=== PATIENT | female | born 1955 | race Caucasian/White ===

== ENCOUNTER → 2023-11-22 08:44 | Outpatient (BNV) | payer MEDICARE, SELFPAY | PROVIDERS: PCP Internal Medicine; Referring Provider Internal Medicine Hematology & Oncology; Visit Provider Internal Medicine Medical Oncology | DX: D05.12 Intraductal carcinoma in situ of left breast (principal) | CPT/HCPCS: 99204; 99213 ==

== ENCOUNTER 2024-03-17 11:49 | Outpatient (AMB) | payer MEDICARE, SELFPAY ==
--- NOTE | 2024-03-17 12:00 | A.OFFVIS_ITS ---
Vital Signs 3 03/17/24 12:09 Height 5 ft 4.5 in Weight 246 lb BMI 41.6 Pulse 62 Intake Visit Reasons: DCIS left breast Intake Note: Patient is seen in office for DCIS of the breast. Pt c/o:concern about last mammogram on 08/16/23 and gets pain in the left breast 12 o'clock, denies any other issues, taking Letrozole and side effects weight gain and hair loss Op Note: 11/23/23 ([facility]) ref Dr Martinez Hyperbaric Technologist Required: No Associate Research Scientist: Associate Research Scientist Present Accompanied by: Self / Same As Patient Allergies latex Allergy (Verified 03/17/24 12:07) Rash HPI Comments Details: 68-year-old female patient for presenting for breast cancer follow-up. She is a former patient of Dr. Cortes and Dr. Milo Arias. A screening mammogram on 04/10/2022 revealed a focal asymmetry in the lower inner left breast. Subsequent diagnostic mammogram on 04/19/2022 showed a persistent focal asymmetry in the medial left breast confirmed on ultrasound to be a 1.1 x 0.7 x 0.7 cm tubular hypoechoic mass in the 9 o'clock position this was again a demonstrated on 10/19/2022 at which time a left breast needle core biopsy was performed on 10/26/2022. 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 A left breast lumpectomy was subsequently performed by Dr. Cortes on 11/21/2022. Pathology revealed a 0.7 cm grade 2 solid papillary carcinoma without invasion. Margins were negative. Atypical ductal hyperplasia was also present. Patient declined radiation therapy. She was subsequently started on letrozole 2.5 mg p.o. q.day. Her latest mammogram performed on 08/16/2023 revealed postoperative changes in the left breast but no other suspicious findings. Diagnostic mammogram is recommended in 1 year (due 08/16/2024). This was felt to be low suspicion for malignancy (BI-RADS 3). She reports some pain in the left breast in the upper outer quadrant but denies any palpable mass or new skin changes. [facility] Medical History Head ache Scoliosis Sciatica Family History Brother Brain cancer Mother Breast cancer Social History Household Members: None Patient Tobacco Use Status: Never used Tobacco service: No Current occupational status: employed Review of Systems Const All systems reviewed & are unremarkable except as noted in HPI and below Denies chills, Denies fever(s), Denies headache(s), Denies poor appetite and Denies weakness ENT Denies headache(s) Card Denies chest pain, Denies irregular heart rhythm, Denies palpitations and Denies dyspnea Resp Denies cough, Denies excessive phlegm production and Denies dyspnea GI Denies abdominal pain, Denies bloating, Denies change in bowel habits, Denies constipation, Denies heartburn, Denies diarrhea, Denies nausea and Denies vomiting Denies urinary frequency Musc Denies back pain, Denies muscle weakness and Denies numbness Skin/Breast Denies changing lesions and Denies unusual bruising Neuro Denies headache(s), Denies numbness, Denies paresthesias and Denies weakness Psych Denies anxiety and Denies depression Endo Denies palpitations Shane/Lymph Denies lymphadenopathy Physical Exam Const General: cooperative and no acute distress Nutritional Appearance: well nourished Orientation/consciousness: patient oriented x3 Limitations: no limitations HEENT Head: Yes normocephalic and Yes atraumatic Ears: hearing grossly normal bilaterally Chest Other: Left breast: No skin change, no nipple retraction, no nipple discharge, no palpable mass, no enlarged lymph nodes. Right breast: No skin change, no nipple retraction, no nipple discharge, no palpable mass, no enlarged lymph nodes Chest/axillae images: 2 1. Incision left breast upper inner quadrant Resp Effort & Inspection: normal respiratory effort, no audible wheezes, no cough and no respiratory distress Cardio Jugular venous distension: no JVD GI Inspection: Yes normal to inspection Skin Other: Warm, dry, no rash Neuro Other: Mobility Assessment: 1. 3 meter assessment time (seconds) 5 2. 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 She was diagnosed with a noninvasive papillary carcinoma of the left breast ER/VT positive, HER2 Chelsea negative. She underwent lumpectomy on 11/21/2022 [facility]. She was evaluated by radiation oncology and medical oncology. She declined radiation therapy and was subsequently started on letrozole 2.5 mg p.o. daily. She underwent a follow-up mammogram on 08/16/2023 which revealed postoperative changes in the left breast (BI-RADS 3). Diagnostic mammogram is recommended in 1 year. Examination today revealed no suspicious findings in either breast. There is a well-healed incision in the left breast with no evidence of recurrent disease. We will schedule her for her annual mammogram due on 08/16/2024. She will follow-up in 6 months for routine breast examination. Coding Level of Care Code New Pt Level 4 (85421) Complex EM visit Add On G2211 Diagnoses Ductal carcinoma in situ (DCIS) of left breast D05.12
[2024-03-17 12:09] VITALS: PULSE 62; BMI 41.6
== END 2024-03-17 12:41 | disposition home or self-care (01) ==
PROVIDERS: PCP Internal Medicine; Visit Provider Surgery
DX: D05.12 Intraductal carcinoma in situ of left breast (principal)
CPT/HCPCS: 99204; G2211

== ENCOUNTER → 2024-03-17 11:49 | Outpatient (BNVA) | payer MEDICARE, SELFPAY | PROVIDERS: PCP Internal Medicine; Visit Provider Surgery | DX: D05.12 Intraductal carcinoma in situ of left breast (principal); Z79.811 Long term (current) use of aromatase inhibitors; Z17.0 Estrogen receptor positive status [ER+]; Z17.21 Progesterone receptor positive status; Z17.32 Human epidermal growth factor receptor 2 negative status | CPT/HCPCS: 99202 ==

== ENCOUNTER 2024-08-10 09:01 | Outpatient (REF) | payer MEDICARE, SELFPAY ==
--- NOTE | ~2024-08-10 | MM_ITS ---
EXAMINATION: MM DIAGNOSTIC DIGITAL BREAST TOMOSYNTHESIS, BILATERAL CLINICAL INFORMATION: History of left breast cancer in 2022 status post lumpectomy. COMPARISON: Mammography: Comparison is made with relevant prior exams from outside institution. TECHNIQUE: Digital breast mammography with tomosynthesis is performed in both the craniocaudal and mediolateral oblique views along with computer-aided detection (CAD). FINDINGS: There are scattered areas of fibroglandular density (ACR BI-RADS breast composition Category b). Left post lumpectomy changes are stable. There are no significant masses, abnormal calcifications, or other abnormalities. Results are provided to the patient at time of visit by the technologist. MM/MM tomosynthesis diagnostic BI IMPRESSION: There are no significant changes from prior study. Patient has bilateral] Both breasts, and left breast tingly which comes and goes since February 2024. Recommend clinical evaluation and if there is a focal concern or if deemed clinically significant a diagnostic workup can be ordered and performed. ASSESSMENT: BI-RADS BI-RADS 2 - Benign Findings RECOMMENDATION: 1 year F/U This patient's information was entered into a reminder system with a target due date for their next mammogram. Electronically signed by: Alba Thibodeaux DO 08/10/2024 11:29 AM EDT
--- OUTSIDE RECORDS SUMMARY | 2024-08-10 09:13 | XMS_ITS | Clinical Summary ---
Author Organization [facility] Address [address] [place] [address] Care Team Providers Care Casing Fluid Tender Name Role Phone Alisa Wong MD Primary Care Provider [phone] Allergies Active Allergy Reactions Criticality Noted Date Comments Latex 12/21/2022 Medications Medication Sig Dispensed Refills Start Date End Date Status Misc Natural Products (YUMVS BEET ROOT-TART AG PO) Take 500 mg by mouth daily. 0 Active OMEGA-3 KRILL OIL PO Take by mouth daily. Dizue-eajlp-7-dha -epa-lipids (154-50-13-50 mg capsule, oral) 0 Active Magnesium 250 MG TABS Take 250 mg by mouth daily. 0 Active B Complex-C (B COMPLEX-VITAMIN C PO) Take by mouth. 0 Active Cholecalciferol (Vitamin D) 125 MCG (5000 UT) CAPS Take by mouth. 0 Active letrozole (FEMARA) 2.5 MG tablet Take 1 tablet (2.5 mg total) by mouth daily 90 tablet 3 08/20/2023 Active Active Problems Problem Noted Date Diagnosed Date Ductal carcinoma in situ (DCIS) of left breast 1 Social History Tobacco Use Types Packs/Day Years Used Date Smoking Tobacco: Never Assessed Sex and Gender Information Value Date Recorded Sex Assigned at Female 12/14/2022 7:37 AM EDT Gender Identity Not on file Sexual Orientation Not on file Job Start Date Occupation Industry Not on file Not on file Not on file Last Filed Vital Signs Vital Sign Reading Time Taken Comments Blood Pressure 176/78 08/20/2023 9:56 AM EDT patient went to wrong building - rushed here Pulse 79 08/20/2023 9:56 AM EDT Temperature 36.9 ??C (98.4 ??F) 08/20/2023 9 :56 AM EDT Respiratory Rate - - Oxygen Saturation 99% 08/20/2023 9:5 6 AM EDT Inhaled Oxygen Concentration - - Weight 111.7 kg (246 lb 3.2 oz) 08/20/2023 9:56 AM EDT Height 162.6 cm (5' 4 ) 08/20/2023 9:56 AM EDT Body Mass Index 42.26 08/20/2023 9:56 AM EDT Plan of Treatment Health Maintenance Due Date Last Done Comments Hepatitis C Screening 1955 COVID-19 Vaccine (#1) 1958 Pneumococcal Vaccine (1 of 2 - PCV) 11/10/1959 Depression Screening 1965 Preventative Health Evaluation 11/10/1971 DTap / Tdap / Td (1 - Tdap) 1972 Shingrix-Zoster Vaccine (1 of 2) 1972 Colon Cancer Screening (Colonoscopy) 1998 Breast Cancer Screening (Mammogram) 11/10/2003 RSV Adult > 60+ Yrs or Pregn ant (1 - Risk 60-74 years 1-dose series) 2013 Fall Risk Assessment 2018 Osteoporosis Screening (DEXA Scan) 2018 Influenza Vaccine (#1) 2023 Hepatitis B Vaccines Aged Out No long er eligible based on patient's age to complete this topic RSV Ped < 20 months Aged Out No longe r eligible based on patient's age to complete this topic Care Teams Casing Fluid Tender Relationship Specialty Start Date End Date Alisa Wong MD [address] [place] [address] PCP - General Internal Medicine 12/13/22
--- OUTSIDE RECORDS SUMMARY | 2024-08-10 09:14 | XMS_ITS | Patient Health Record ---
Author Organization [facility] Address [address] [place] [address] Care Team Providers Care Circuit Design Engineer Name Role Phone JESS SMITH Unavailable [phone] Allergies Allergen (clinical drug ingredient) Drug/Non Drug Allergy documented on EMR Reaction Allergy Type Onset Date Status Latex latex (uncoded) Unknown Allergy Acti ve Reason For Referral No Information Medications Medication SIG (Take, Route, Frequency, Duration) Notes Start Date End Date Status Vitamin D-3 125 MCG (5000 UT) as directed Orally Active Vitamin B12 100 MCG as directed Orally Active Fish Oil 1200 MG 1 capsule Orally Onc e a day Active Vitamin D 50 MCG (2000 UT) 1 tablet Orally Once a day Active [place] 600 MG as directed Orally Active Medrol 4 MG as directed Orally f or 6 days Active Krill Oil 1000 MG as directed Orally Active Tart Connor 1200 MG as directed Orally Active Zinc 10 MG 1 lozenge as needed Mouth/Throat every 4 hrs Active B-12 2500 MCG as directed Sublingual Active Social History Tobacco Use: Social History Observation Description Date Details (start date - stop date) Never Smoker NA - NA Tobacco Use/Smoking Question Answer Notes Are you a nonsmoker Section Notes: 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 finacial aid Problems Problem Type SNOMED Code ICD Code Onset Dates Problem Status W/U Status Risk Notes Problem Hyperlipidemia (87265946) Hyperlipidemia, unspecified (E78.5) Active confirmed Problem Lumbago with sciatica, right side (M54.41) Active confirmed Problem Vitamin D deficiency (61505929) Vitamin D deficiency (E55.9) Active confirmed Problem 113279292 Body mass index [BMI] 40.0-44.9, adult (Z68.41) Active confirmed Problem Grief (012466543) Grief (F43.21) Active confirm ed Plan Of Treatment Pending Test Test Name Order Date XR Hip 2+ Views RT 01/26/2020 LIPID PANEL, STANDARD 04/05/2022 LIPID PANEL, STANDARD 05/21/2022 COMPREHENSIVE METABOLIC PANEL 04/05/2022 CBC (INCLUDES DIFF/PLT) 04/05/2022 URINALYSIS, COMPLETE 04/05/2022 HEMOGLOBIN A1c 04/05/2022 TSH 04/05/2022 VITAMIN D,25-OH,TOTAL,IA 04/05/2022 Insurance Providers Payer Name Payer Address Payer Phone Subscriber Number Group Number Insured Name Patient Relationship to Insured Coverage Start Date Coverage End Date [employer] [facility] [address] [address] [place] [address] [id number] PANDA CALVO Self - patient is the insured Medical (General) History Medical History History ICD Code Obesity (BMI 30-39.9) E66.9 Surgical History Surgery Date(Month/Year) tonsillectomy
== END 2024-08-10 09:02 | disposition home or self-care (01) ==
LOC: HO.MAMMO 09:01
PROVIDERS: PCP Internal Medicine; Referring Provider Internal Medicine Medical Oncology; Visit Provider Surgery
DX: Z85.3 Personal history of malignant neoplasm of breast (principal)
CPT/HCPCS: 77062; 77066

== ENCOUNTER → 2024-08-10 09:30 | Outpatient (BNV) | payer MEDICARE, SELFPAY | PROVIDERS: PCP Internal Medicine; Referring Provider Internal Medicine Medical Oncology; Visit Provider Internal Medicine | DX: Z85.3 Personal history of malignant neoplasm of breast (principal) | CPT/HCPCS: 77066; G0279 ==

== ENCOUNTER 2024-08-28 08:42 | Outpatient (AMB) | payer MEDICARE, SELFPAY ==
--- OUTSIDE RECORDS SUMMARY | 2024-08-28 08:57 | XMS_ITS | Clinical Summary ---
Author Organization [facility] Address [address] [place] [id number] Care Team Providers Care Drying Room Attendant Name Role Phone Alisa Wong MD Primary Care Provider [phone] Allergies Active Allergy Reactions Criticality Noted Date Comments Latex 12/21/2022 Medications Medication Sig Dispensed Refills Start Date End Date Status Misc Natural Products (YUMVS BEET ROOT-TART AG PO) Take 500 mg by mouth daily. 0 Active OMEGA-3 KRILL OIL PO Take by mouth daily. Yzhwo-wmanz-5-dha -epa-lipids (491-17-86-50 mg capsule, oral) 0 Active Magnesium 250 [...] Osteoporosis Screening (DEXA Scan) 2018 Influenza Vaccine (Season Ended) 2024 Hepatitis B Vaccines Aged Out No long er eligible based on patient's age to complete this topic RSV Ped < 20 months Aged Out No longe r eligible based on patient's age to complete this topic Care Teams Drying Room Attendant Relationship Specialty Start Date End Date Alisa Wong MD [address] [place] [address] PCP - General Internal Medicine 12/13/22
--- NOTE | 2024-08-28 09:00 | MHC.OFFVIS ---
Vital Signs 08/28/24 09:12 Height 5 ft 4.5 in Weight 244 lb BMI 41.2 Blood Pressure Location Lt brachial Position Sitting Pulse 62 Intake Visit Reasons: s/p 08/10/24 Mammo Intake Note: Patient is seen in office for 6 month follow up visit, breast exam. Pt c/o: concern as mammogram was performed by someone who was in training. Hx of dense breast but did not feel much compression. mm: 08/10/24 Picture Enlarger Required: No Accompanied by: Self / Same As Patient Allergies latex Allergy (Verified 08/28/24 09:12) Rash Medication List - Last Reconciled 08/28/24 by Yunier Donohue MD letrozole 2.5 mg PO DAILY HPI Comments Details: 68-year-old female patient for presenting for breast cancer follow-up. She is a former patient of Dr. Cortes and Dr. Milo Arias. A screening mammogram on 04/10/2022 revealed a focal asymmetry in the lower inner left breast. Subsequent diagnostic mammogram on 04/19/2022 showed a persistent focal asymmetry in the medial left breast confirmed on ultrasound to be a 1.1 x 0.7 x 0.7 cm tubular hypoechoic mass in the 9 o'clock position this was again a demonstrated on 10/19/2022 at which time a left breast needle core biopsy was performed on 10/26/2022. Pathology revealed a solid papillary carcinoma in-situ, ER/IN positive, HER2 Chelsea negative. A left breast lumpectomy was subsequently performed by Dr. Cortes on 11/21/2022. Pathology revealed a 0.7 cm grade 2 solid papillary carcinoma without invasion. Margins were negative. Atypical ductal hyperplasia was also present. Patient declined radiation therapy. She was subsequently started on letrozole 2.5 mg p.o. q.day. her latest mammogram performed on 08/10/2024 revealed no mammographic evidence of malignancy (BI-RADS 2). [facility] Medical History Head ache Scoliosis Sciatica Family History Brother Brain cancer Mother Breast cancer Social History Household Members: None Patient Tobacco Use Status: Never used Tobacco service: No Current occupational status: employed Review of Systems Const All systems reviewed & are unremarkable except as noted in HPI and below Denies chills, Denies fever(s), Denies headache(s), Denies poor appetite and Denies weakness ENT Denies headache(s) Card Denies chest pain, Denies irregular heart rhythm, Denies palpitations and Denies dyspnea Resp Denies cough, Denies excessive phlegm production and Denies dyspnea GI Denies abdominal pain, Denies bloating, Denies change in bowel habits, Denies constipation, Denies heartburn, Denies diarrhea, Denies nausea and Denies vomiting Denies urinary frequency Musc Denies back pain, Denies muscle weakness and Denies numbness Skin/Breast Denies changing lesions and Denies unusual bruising Neuro Denies headache(s), Denies numbness, Denies paresthesias and Denies weakness Psych Denies anxiety and Denies depression Endo Denies palpitations Shane/Lymph Denies lymphadenopathy Physical Exam Const General: cooperative and no acute distress Nutritional Appearance: well nourished Orientation/consciousness: patient oriented x3 Limitations: no limitations HEENT Head: Yes normocephalic and Yes atraumatic Ears: hearing grossly normal bilaterally Chest Other: Left breast: No skin change, no nipple retraction, no nipple discharge, no palpable mass, no enlarged lymph nodes. Well-healed incision in the lower and upper inner quadrants as noted below. Right breast: No skin change, no nipple retraction, no nipple discharge, no palpable mass, no enlarged lymph nodes Chest/axillae images: 1. Incision left breast s/p lumpectomy Resp Effort & Inspection: normal respiratory effort, no audible wheezes, no cough and no respiratory distress Cardio Jugular venous distension: no JVD GI Inspection: Yes normal to inspection Skin Other: Warm, dry, no rash Neuro Other: Mobility Assessment: 1. 3 meter assessment time (seconds) 6 2. Gait observations: Normal balance and gait General: patient oriented x3 Extrem General: Yes no clubbing, cyanosis or edema Assessment & Plan Assessment & Plan (1) Ductal carcinoma in situ (DCIS) of left breast: Comment: Noninvasive papillary carcinoma left breast, ER/IN positive, HER2 Chelsea negative diagnosed at [facility], lumpectomy performed 11/21/2022 Code(s): D05.12 - Intraductal carcinoma in situ of left breast Category: Medical Plan 68-year-old female patient presenting for a breast cancer follow-up examination. She was diagnosed with a noninvasive papillary carcinoma of the left breast ER/IN positive, HER2 Chelsea negative. She underwent lumpectomy on 11/21/2022 [facility]. She was evaluated by radiation oncology and medical oncology. She declined radiation therapy and was subsequently started on letrozole 2.5 mg p.o. daily. Her most recent mammogram performed on 08/10/2024 revealed no mammographic evidence of malignancy (BI-RADS 2). Examination today revealed no suspicious findings in either breast. There is a well-healed incision in the left breast with no evidence of recurrent disease. Follow-up mammogram in 1 year is recommended. I recommended follow-up examination in 6 months. Coding Level of Care Code Est Pt Level 3 (55948) Complex EM visit Add On G2211 Diagnoses Ductal carcinoma in situ (DCIS) of left breast D05.12
[2024-08-28 09:12] VITALS: PULSE 62; BMI 41.2
== END 2024-08-28 09:37 | disposition home or self-care (01) ==
LOC: HO.HGS 08:42
PROVIDERS: PCP Internal Medicine; Visit Provider Surgery
DX: D05.12 Intraductal carcinoma in situ of left breast (principal)
CPT/HCPCS: 99213; G2211

== ENCOUNTER → 2024-08-28 08:42 | Outpatient (BNVA) | payer MEDICARE, SELFPAY | PROVIDERS: PCP Internal Medicine; Visit Provider Surgery | DX: D05.12 Intraductal carcinoma in situ of left breast (principal) | CPT/HCPCS: 99212 ==

== ENCOUNTER 2024-12-28 07:33 | Outpatient (REF) | payer MEDICARE, SELFPAY ==
--- NOTE | ~2024-12-28 | MM_ITS ---
EXAMINATION: DXA BONE DENSITY AXIAL HISTORY: osteopenia TECHNIQUE: AccuRev Dual energy absorptiometry (DEXA) of the lumbar spine, total left hip, and femoral neck was performed. COMPARISON: There are no prior studies for comparison. FINDINGS: The bone mineral density of the lumbar spine is 1.410 g/cm2, corresponding to a T-score of 1.9, and a Z-score of 2.4. This is indicative of normal bone mineral density. The bone mineral density of the left total hip is 1.118 g/cm2, corresponding to a T-score of 0.9, and a Z-score of 1.6. This is indicative of normal bone mineral density. The bone mineral density of the left femoral neck is 1.085 g/cm2, corresponding to a T-score of 0.3, and a Z-score of 1.3. This is indicative of normal bone mineral density. MM/XR DEXA axial skeleton IMPRESSION: Based on bone mineral density, and according to World Health Organization (WHO) criteria, the diagnosis is consistent with normal bone mineral density. Statistically, 68% of repeat scans fall within 1 SD (+/- 0.010 g/cm2 for AP spine L1-L4) and 1 SD (+/- 0.012 g/cm2 for femur total) FRAX is a trademark of the [employer]'s [place] [employer] Metabolic Bone [employer], a World Health Organization (WHO) Collaborating Center. Electronically signed by: Gregory Wilkins MD 12/28/2024 08:22 AM EDT
--- OUTSIDE RECORDS SUMMARY | 2024-12-28 07:37 | XMS_ITS | Clinical Summary ---
Author Organization [facility] Address [address] [place] [address] Care Team Providers Care Sas Developer Name Role Phone Alisa Wong MD Primary Care Provider [phone] Allergies Active Allergy Reactions Criticality Noted Date Comments Latex 12/21/2022 Medications Medication Sig Dispensed Refills Start Date End Date Status Misc Natural Products (YUMVS BEET ROOT-TART AG PO) Take 500 mg by mouth daily. 0 Active OMEGA-3 KRILL OIL PO Take by mouth daily. Efklo-kwsjv-5-dha -epa-lipids (470-68-60-50 mg capsule, oral) 0 Active Magnesium 250 [...] 79 08/20/2023 9:56 AM EDT Temperature 36.9 C (98.4 F) 08/20/2023 9:56 AM EDT Respiratory Rate - - Oxygen [...] (Colonoscopy) 1998 Breast Cancer Screening (Mammogram) 11/10/2003 Fall Risk Assessment 2018 Osteoporosis Screening (DEXA Scan) 2018 Influenza Vaccine (#1) 2024 RSV Adult > 60+ Yrs or Pregn ant (1 - 1-dose 75+ series) 2028 Hepatitis B Vaccines Aged Out No long er eligible based on patient's age to complete this topic RSV Ped < 20 months Aged Out No longe r eligible based on patient's age to complete this topic Care Teams Sas Developer Relationship Specialty Start Date End Date Alisa Wong MD [address] [place] [address] PCP - General Internal Medicine 12/13/22
--- OUTSIDE RECORDS SUMMARY | 2024-12-28 07:37 | XMS_ITS | Clinical Summary ---
Author Organization [facility] Address [address] [place] [phone] Phone Care Team Providers Care Sagger Preparer Name Role Phone Alisa Wong MD Primary Care Provider [phone] Allergies Active Allergy Reactions Criticality Noted Date Comments Latex 12/21/2022 Medications B3/B5/B6/B7/fol ic/B12/inosit/C (B COMPLEX-VITAMIN C ORAL) Take by mouth. Active cholecalciferol (VITAMIN D-3) 125 mcg (5,000 unit) capsule Take by mouth. Active letrozole (FEMARA) 2.5 mg tablet Take 1 tablet (2.5 mg total) by mouth daily 12/24/2022 Active magnesium 250 mg tablet Take 250 mg by mouth daily. Active UNABLE TO FIND Misc Natural Products (YUMVS BEET ROOT-TART AG PO) Route: Take 500 mg by mouth daily. - Oral Active krill/om-3/dha/ epa/phospho/ast (OMEGA-3 KRILL OIL ORAL) Take by mouth daily. Briqx-vqeit-3 -fxo-tsp-hkrj ds (684-68-31-50 mg capsule, oral) Active Active Problems Problem Noted Date Diagnosed Date Ductal carcinoma in situ (DCIS) of left breast 1 Social History Tobacco Use Types Packs/Day Years Used Date Smoking Tobacco: Never Assessed Comments Unknown Sex and Gender Information Value Date Recorded Sex Assigned at Female 12/11/2024 10:24 AM EDT Legal Sex Female 9:12 PM EST Gender Identity Not on file Sexual Orientation Not on file Obstetrics History Last Filed Vital Signs Vital Sign Reading Time Taken Comments Blood Pressure 176/78 08/20/2023 9:56 AM EDT Sit ting Pulse 79 08/20/2023 9:56 AM EDT Temperature - - Respiratory Rate - - Oxygen Saturation - - Inhaled Oxygen Concentration - - Weight 112 kg (246 lb 3.2 oz) 08/20/2023 9:56 AM EDT Height 162.6 cm (5' 4 ) 08/20/2023 9:56 AM EDT Body Mass Index 42.26 08/20/2023 9:56 AM EDT Plan of Treatment Health Maintenance Due Date Last Done Comments Colorectal Cancer Screening: Colonoscopy 1955 DTaP,Tdap,and Td Vaccines (1 - Tdap) 1972 Pneumococcal Vaccine: 50+ Ye ars (1 of 2 - PCV) 1972 Zoster Vaccines (1 of 2) 1972 RSV Immunization Adult Patie nts (1 - Risk 60-74 years 1-dose series) 2013 COVID-19 Vaccine (2 - Pfizer risk series) 06/14/2021 05/24/2021 Cholesterol Screening (Lipid Panel) 04/19/2023 Falls Risk Assessment 04/19/2023 Hepatitis C Screening 04/19/2023 Medicare Annual Wellness Visit 04/19/2023 Social Influencers of Health Screening 04/19/2023 Depression Screening 03/25/2024 Influenza Vaccine (#1) 2024 Breast Cancer Screening 12/09/2026 12/09/2024 Osteoporosis Screening (Bone Density Screening) 01/07/2033 01/07/2023 HIB Vaccines Aged Out No longer eligi ble based on patient's age to complete this topic HPV Vaccines Aged Out No longer eligi ble based on patient's age to complete this topic Hepatitis A Vaccines Aged Out No long er eligible based on patient's age to complete this topic Hepatitis B Vaccines Aged Out No long er eligible based on patient's age to complete this topic IPV Vaccines Aged Out No longer eligi ble based on patient's age to complete this topic MMR Vaccines Aged Out No longer eligi ble based on patient's age to complete this topic Meningococcal ACWY Vaccine Aged Out N o longer eligible based on patient's age to complete this topic Meningococcal B Vaccine Aged Out No l onger eligible based on patient's age to complete this topic RSV Immunization Patients Un andres 20 months Aged Out No longer eligible b ased on patient's age to complete this topic Varicella Vaccines Aged Out No longer eligible based on patient's age to complete this topic Procedures Procedure Name Priority Date/Time Associated Diagnosis Comments MG MAMMO DIGITAL SCREENING W AGUS BILAT Routine 12/09/2024 11:02 AM EDT ADAIR DEXA AXIAL SKELETON Routine 01/07/2023 8:22 AM EDT Asymptomatic menopausal state from Last 3 Months or Most Recently Relevant to Health Maintenance Results * MG Mammo Digital Screening w Agus bilat (12/09/2024 11:02 AM EDT) Anatomical Region Laterality Modality Breast Bilateral Mammography us Historical Provider MD VILLEGAS BI PROCEDURES Final R esult * ADAIR DEXA AXIAL SKELETON (01/07/2023 8:22 AM EDT) Anatomical Region Laterality Modality Mammography 01/04/2023 2:53 PM EDT Narrative 01/07/2023 8:22 AM EDT [facility] Diagnostic Imaging Department [address] [place] [address] Patient: PANDA FELDER /Age/Sex: 1955 - 67 - F Unit#: [id number] Location/Status: SPDIMAM/REG CLI Mnemonic[facility] Ordering Physician: MILO TEIXEIRA MD Adair Dexa Axial Skeleton - 01/04/23 - 0 Report Status:Signed HISTORY: The patient is a 67-year-old postmenopausal female with clinical concern for metabolic bone disease. FINDINGS: Dual energy x-ray absorptiometry of the lumbar spine and femurs is performed. The mean bone mineral density at L1-L4 is 1.395 gm/cm2 which is 118% of that of young normals and 124% of that of age matched controls. This yields a T-score of 1.8 and a Z-score of 2.3 and there is therefore no evidence of osteoporosis or osteopenia here. The mean bone mineral density of the femurs bilaterally is 1.171 gm/cm2 which is 116% of that of young normals and 125% of that of age matched controls. This yields a T-score of 1.3 and a Z-score of 1.9 and there is therefore no evidence of osteoporosis or osteopenia here. IMPRESSION: 1. There is no evidence of osteoporosis or osteopenia. 2. FRAX analysis yields a 10-year probability of major osteoporotic fracture of 5.1% and a 10-year probability of hip fracture of 0.1%. Code 90731 Dictating Physician: NITHIN WRIGHT MD Electronically Signed by: NITHIN WRIGHT MD Dic Date/Time: 01/07/23820 Sign date/Time: 01/07/23821 Procedure Note Nithin Wright MD - 04/30/2023 [facility] Diagnostic Imaging Department [address] [place] [address] Patient: GIRMA FELDERDWIGHT Wynne/Age/Sex: 1955 - 67 - F Unit#: [id number] Location/Status: SPDIMAM/REG CLI Mnemonic[facility] Ordering Physician: MILO TEIXEIRA MD Adair Dexa Axial Skeleton - 01/04/231509 Report Status:Signed HISTORY: The patient is a 67-year-old postmenopausal female withclinical concern for metabolic bone disease. FINDINGS: Dual energy x-ray absorptiometry of the lumbar spine and femursis performed. The mean bone mineral density at L1-L4 is 1.395 gm/cm2 which is118% of that of young normals and 124% of that of age matched controls. Thisyields a T-score of 1.8 and a Z-score of 2.3 and there is therefore no evidenceof osteoporosis or osteopenia here. The mean bone mineral density of the femurs bilaterally is 1.171 gm/cm9pusko is 116% of that of young normals and 125% of that of age matched controls.This yields a T-score of 1.3 and a Z-score of 1.9 and there is therefore noevidence of osteoporosis or osteopenia here. IMPRESSION: 1. There is no evidence of osteoporosis or osteopenia. 2. FRAX analysis yields a 10-year probability of major osteoporoticfracture of 5.1% and a 10-year probability of hip fracture of 0.1%. Code 74639 Dictating Physician: NITHIN WRIGHT MD Electronically Signed by: NITHIN WRIGHT MD Dic Date/Time: 01/07/23820 Sign date/Time: 01/07/23821 Milo Teixeira MD IMG BI PROCEDURES Final Res ult from Last 3 Months or Most Recently Relevant to Health Maintenance Insurance [address] [place], [place] [id number] [employer] MEDICARE Care Teams Sagger Preparer Relationship Specialty Start Date End Date Alisa Wong MD [address] [place] [address] PCP - General 12/13/22
--- OUTSIDE RECORDS SUMMARY | 2024-12-28 07:38 | XMS_ITS | Patient Health Record ---
[facility] Address [address] [place] [address] Care Team Providers Care Color Making Supervisor Name Role Phone JESS SMITH Unavailable [phone] Allergies Allergen (clinical drug ingredient) Drug/Non Drug [...] 1 tablet Orally Once a day Active Blaine 600 MG as directed Orally Active Medrol 4 MG as directed Orally; Duration: 6 days Active Krill Oil 1000 MG [...] Status W/U Status Risk Notes Problem Hyperlipidemia (51238429) Hyperlipidemia, unspecified (E78.5) Active confirmed Problem Sciatica (64993711) Lumbago with sciatica, right side (M54.41) Active confirmed Problem Vitamin D deficiency (35884771) Vitamin D deficiency (E55.9) Active confirmed Problem Body mass index 40+ - severely obese (977947103) Body mass index [BMI] 40.0-44.9, adult (Z68.41) Active confirmed Problem Grief (575732080) Grief (F43.21) Active confirm ed Plan Of Treatment Pending Test Test Name Order Date XR Hip 2+ Views RT 01/26/2020 LIPID PANEL, STANDARD 04/05/2022 LIPID PANEL, STANDARD 05/21/2022 COMPREHENSIVE METABOLIC PANEL 04/05/2022 CBC (INCLUDES DIFF/PLT) 04/05/2022 URINALYSIS, COMPLETE 04/05/2022 HEMOGLOBIN A1c 04/05/2022 TSH 04/05/2022 VITAMIN D,25-OH,TOTAL,IA 04/05/2022 Next Appt Details Provider Name:BATSHEVA SMITH, 10:45:00 AM, [address], [place], [address], Insurance Providers Payer Name Payer Address Payer Phone Subscriber Number Group Number Insured Name Patient Relationship to Insured Coverage Start Date Coverage End Date [employer]AGE [facility] [address] [address] [place] [phone] [id number] PANDA CALVO Self - patient is the insured Medical (General) History Medical History History ICD Code Obesity (BMI 30-39.9) E66.9 Surgical History Surgery Date(Month/Year) tonsillectomy
== END 2024-12-28 07:34 | disposition home or self-care (01) ==
LOC: HO.MAMMO 07:33
PROVIDERS: PCP Internal Medicine; Visit Provider Internal Medicine Medical Oncology
DX: Z13.820 Encounter for screening for osteoporosis (principal); M85.80 Other specified disorders of bone density and structure, unspecified site; D05.12 Intraductal carcinoma in situ of left breast
CPT/HCPCS: 77080

== ENCOUNTER → 2024-12-28 08:15 | Outpatient (BNV) | payer MEDICARE, SELFPAY | PROVIDERS: PCP Internal Medicine; Visit Provider Radiology Diagnostic Radiology | DX: E28.39 Other primary ovarian failure (principal) | CPT/HCPCS: 77080 ==